=== PATIENT | female | born 1995 | race Hispanic/Latino ===

== ENCOUNTER 2021-09-30 19:53 | Emergency (ER) | payer OTHER ==
[~2021-09-30] VITALS: Ht 152.4 cm; Wt 44.9 kg
[2021-09-30] MEDS ORDERED: CETI1SOL17 PO (20:29)
[2021-09-30] MEDS ORDERED: FAMO-136 PO (20:29)
[2021-09-30] MEDS ORDERED: PRED20TA3 PO (20:29)
[2021-09-30] MEDS ORDERED: HYDROXYZINE 25 MG TABLET PO SCH (20:30)
[2021-09-30] MEDS ORDERED: SOLU-MEDROL 125MG VIAL IM SCH (20:30)
[2021-09-30] MEDS ORDERED: FAMOTIDINE 20MG TAB PO SCH (20:30)
[2021-09-30 20:41] VITALS: BP 109/71
== END 2021-09-30 21:09 | disposition home or self-care (01) ==
LOC: EDH 19:53
DX: L50.9 Urticaria, unspecified (principal); Z79.899 Other long term (current) drug therapy
CPT/HCPCS: 96372; 99283; J2930

== ENCOUNTER 2024-05-29 14:30 | Emergency (ER) | payer BC, OTHER ==
[~2024-05-29] VITALS: Ht 152.4 cm; Wt 44.5 kg
[~2024-05-29 14:30] MED LIST: CETI1SOL17 PO; FAMO-136 PO; PRED20TA3 PO
[2024-05-29 14:54] LABS: APPEARANCE,URINE CLOUDY (CLEAR); BILIRUBIN,URINE NEGATIVE (NEGATIVE); COLOR,URINE YELLOW (YELLOW); GLUCOSE, URINE (UA) NEGATIVE (NEGATIVE); KETONES,URINE 5 mg/dL (NEGATIVE); LEUKOCYTE ESTERASE ,URINE 500 Leu/uL (NEGATIVE); NITRATE,URINE NEGATIVE (NEGATIVE); OCCULT BLOOD,URINE NEGATIVE (NEGATIVE); PROTEIN,URINE 20 mg/dL (NEGATIVE); UROBILINOGEN,URINE 0.2 mg/dL (0.2-1.0)
[2024-05-29 14:55] LABS: ADD UA MICROSCOPIC YES
[2024-05-29 15:03] LABS: BACTERIA,URINE FEW /HPF (None Seen); MUCUS,URINE MOD LPF (None Seen); SQUAMOUS EPITHELIAL CELL,UR RARE /HPF (0-2); WBC,URINE TNTC /HPF (0-1)
[2024-05-29] MEDS ORDERED: NITR100C4 PO (15:31)
--- NOTE | 2024-05-29 15:31 | ERN ---
ED Note History of Present Illness Stated Complaint: VAG PAIN Chief Complaint: Painful Urination Time Seen by MD: 14:39 Time Seen by Midlevel: 14:39 Dictation: The patient is a 28-year-old female with no past medical history who presents to the emergency department with complaints of burning urination onset this morning. Patient denies any vaginal bleeding or discharge, denies any nausea vomiting, diarrhea, fevers. Allergies: Coded Allergies: No Known Allergies (Unverified Allergy, Unknown, 09/30/21) Home Meds Active Scripts Nitrofurantoin Monohyd/M-Cryst (Macrobid 100 mg Capsule) 100 Mg Capsule, 1 CAP PO BID for 5 Days, #10 CAP 0 Refills Prov:CAROLYNE HENDERSON [employer] 05/29/24 Famotidine (Pepcid) 20 Mg Tablet, 20 MG PO BID, #30 TAB Prov:SOURAV RESTREPO 09/30/21 Prednisone (Prednisone) 20 Mg Tablet, 20 MG PO DAILY for 5 Days, #5 TAB Prov:SOURAV RESTREPO 09/30/21 Cetirizine HCl (Zyrtec Syrup 1 mg/1 ml) 1 Mg/1 Ml Solution, 10 MG PO BID for 5 Days, #120 ML Prov:SOURAV RESTREPO 09/30/21 Past Medical History Past Medical History: GERD Surgical History: None Family History: Negative Social History: Negative RN Note Reviewed/Agreed w/PFSH: Yes Review of System Dictation Constitutional: Negative for fever,chills, and weight loss Eyes: Negative for injury, pain,redness, and discharge ENT: Negative for injury,pain or swelling Cardiovascular: Negative for chest pain, palpitations, and edema Respiratory: Negative for shortness of breath, cough, and wheezing, Abdomen/GI: Negative for abdominal pain, nausea, vomiting, diarrhea, and constipation Back: Negative for injury and pain : Negative for injury, bleeding and discharge positive for burning urination MS/Extremity: Negative for injury and deformity Skin: Negative for rash, and discoloration Neuro: Negative for headache, weakness, numbness, tingling, and seizure Psych: Negative for suicide ideation, homicidal ideation, and hallucinations Initial Vital Sign VS Vital Signs Date Time Temp Pulse Resp B/P (MAP) Pulse Ox O2 Delivery O2 Flow Rate FiO2 12/25/24 14:34 98.2 84 18 121/87 99 05/29/24 14:49 Room Air* 0 21 Physical Exam Dictation Vital Signs reviewed General Appearance: Alert, oriented x 3, no acute distress, well developed, nourished. Head and Face: non-traumatic. Eyes: PERRL, pink conjunctivas, eyelid no trauma, anterior chamber with arcus senilis. Ears: Pinnas intact and no signs of trauma or erythema ear canals clear and no discharge TM no erythema Nose: No discharge, no bleeding. Oropharynx: Mouth normal, tongue pink. pharynx clear,no erythema, tonsils no exudates, no abscesses noted, mucous membrane moist Neck: Supple, non-tender, no thyromegaly, no masses, no JVD, no bruits Breast:Deferred Chest:No tenderness, no crepitus, no paradoxical movement, no retractions Lungs:Clear, well-ventilated, symmetric, no rales, no wheezing, no rhonchi, no stridor, good breath sounds bilaterally Heart: Regular rate, regular rhythm, no murmur, no gallops Vascular: no peripheral edema, Abdomen: Soft, positive bowel sounds, nondistended, no guarding, nontender, no rebound, no masses no hepatomegaly, no splenomegaly, no Aguillon's sign, no hernias. Rectal: Deferred Genital: Deferred Neurological: Normal speech, motor function intact, sensory function intact Musculoskeletal: Neck nontender, full range of motion, back nontender, full rang e of motion, Extremities: nontender, full range of motion Skin: Color pink, dry, no turgor, no rash, no lacerations, no abrasions, no contusions. Lymphatic: Deferred Results (Laboratory/Radiology) Laboratory/Radiology Laboratory Tests Test 05/29/24 14:39 Urine Color YELLOW (YELLOW) Urine Appearance CLOUDY (CLEAR) H Urine pH 6.0 (5.0-8.0) Urine Specific Roxie 1.034 (1.001-1.031) Urine Protein 20 mg/dL (NEGATIVE) H Urine Glucose (UA) NEGATIVE mg/dL (NEGATIVE) Urine Ketones 5 mg/dL (NEGATIVE) H Urine Occult Blood NEGATIVE (NEGATIVE) Urine Nitrate NEGATIVE (NEGATIVE) Urine Bilirubin NEGATIVE mg/dL (NEGATIVE) Urine Urobilinogen 0.2 mg/dL (0.2-1.0) Urine Leukocyte Esterase 500 Radha/uL (NEGATIVE) H Urine RBC 6-10 /HPF (0-1) H Urine WBC TNTC /HPF (0-1) H Urine Squamous Epithelial Cells RARE /HPF (0-2) Urine Bacteria FEW /HPF (None Seen) Urine HCG, Qualitative NEGATIVE (NEGATIVE) Labs Reviewed?: Yes ED Course ED Course Orders Procedure Category Date Status Time Urinalysis Profile LAB 05/29/24 Complete 14:38 ,Urine Test LAB 05/29/24 Complete 14:40 Culture Urine ARYAN 05/29/24 In Process 14:55 Ceftriaxone 1g Vial PHA 05/29/24 Complete (Rocephine 1g Inj) 15:30 Lidocaine Hcl 1% 20ml PHA 05/29/24 Complete Vial (Lidocaine Hc 15:39 Current Medications Medications (Trade) Dose Ordered Sig/Matti Route PRN Reason Start Time Stop Time Status Last Admin Dose Admin Ceftriaxone Sodium (ROCEphine 1G INJ) 1 gm ONCE ONCE IM 05/29/24 15:30 05/29/24 15:31 DC 05/29/24 15:49 Lidocaine HCl (Lidocaine HCl 1% 20ml Vial) 20 ml STK-MED ONCE .ROUTE 05/29/24 15:39 05/29/24 15:40 DC Vital Signs Date Time Temp Pulse Resp B/P (MAP) Pulse Ox O2 Delivery O2 Flow Rate FiO2 05/29/24 15:51 98.2 75 18 105/62 99 Room Air* 0 21 05/29/24 14:49 75 18 107/68 97 Room Air* 0 21 05/29/24 14:34 98.2 84 18 121/87 99 Medical Decision Making MDM The patient is a 28-year-old female with no past medical history who presents to the emergency department with complaints of burning urination onset this morning. Patient denies any vaginal bleeding or discharge, denies any nausea vomiting, diarrhea, fevers. Urinalysis positive for UTI. Patient will be discharged with the antibiotics. Patient in no acute distress, nontender abdomen. Differential diagnosis: UTI, dysuria, Need for hospitalization: Patient does not meet criteria for hospitalization. There are no social concerns with this patient. DX & DISP Disposition: Discharge Departure Impression: Primary Impression: UTI (urinary tract infection) Additional Impression: Dysuria Condition: Stable Scripts Nitrofurantoin Monohyd/M-Cryst (Macrobid 100 mg Capsule) 100 Mg Capsule 1 CAP PO BID for 5 Days, #10 CAP 0 Refills Prov: CAROLYNE HENDERSON 05/29/24 Additional Instructions: FOLLOW-UP WITH PRIMARY CARE PROVIDER IN 1 TO 2 DAYS. TAKE MEDICATIONS DIRECTED HERE IN THE EMERGENCY ROOM. OKAY TO CONTINUE HOME MEDICATIONS UNLESS OTHERWISE DISCUSSED DURING YOUR VISIT IN THE EMERGENCY ROOM TODAY. RETURN TO YOUR NEAREST EMERGENCY ROOM IF SYMPTOMS WORSEN OR IF THERE IS NO IMPROVEMENT. CALL 911 IF YOU NEED IMMEDIATE ASSISTANCE. TAKE TYLENOL OR MOTRIN OVER-THE-CO UNTER NEEDED AND IF NO CONTRAINDICATIONS ARE PRESENT. INCREASE ORAL HYDRATION. A WOUND CULTURE OR URINE CULTURE WAS ORDERED HERE IN THE EMERGENCY ROOM DEPARTMENT PLEASE FOLLOW-UP WITH PRIMARY CARE PROVIDER AND ADVISE THEM TO GET REPEAT PORTS FROM OUR FACILITY. IF YOU HAD ANY JAS WRAP/SPLINTS THAT WERE APPLIED HERE, PLEASE DO NOT REMOVE THEM UNTIL YOU SEE YOUR PRIMARY CARE OR SPECIALTY. Referrals: NONE (PCP) Time of Disposition: 15:29 I have reviewed the case, and I agree with, Diagnosis and Plan I performed this substantive portion of this visit. I have reviewed and personally made and approve the management plan that is documented in the note by myself or the LOUIE. I acknowledge full responsibility for the patient's management plan. CAROLYNE HENDERSON May 29, 2024 15:31 MESSI KIM MD May 29, 2024 18:39
[2024-05-29] MEDS ORDERED: LIDOCAINE HCL 1% 20 ML VIAL ONE (15:39)
[2024-05-29] MEDS: cefTRIAXone 1G VIAL IM ONE (15:49)
[2024-05-29 15:51] VITALS: BP 105/62; PULSE 75; RESP 18; TEMP 98.2; O2SAT 99
== END 2024-05-29 15:56 | disposition home or self-care (01) ==
LOC: EDH 14:30
DX: N39.0 Urinary tract infection, site not specified (principal); R30.0 Dysuria; K21.9 Gastro-esophageal reflux disease without esophagitis; Z79.52 Long term (current) use of systemic steroids
CPT/HCPCS: 99284; 87086; 81001; 81025; 96372; J0696